=== PATIENT | male | born 1985 | race Caucasian/White ===

== ENCOUNTER 2022-04-03 00:30 | Day surgery (SDC) | payer BC, SELFPAY ==
[2022-04-02 09:43] VITALS: BMI 28.8
--- NOTE | 2022-04-02 09:47 | PC.NURSE ---
Report to the Outpatient Waiting Room, entrance under the green pavilion located off [facility], at time 0800 on date 04/03/22. Planned Procedure Time: 0900. Time changes happen often and if your time is changed the preop area will call you the afternoon before. - You and your visitor will be asked to self-screen and do not enter if you have any COVID symptoms. - Only one visitor is requested with a max of two and NO children visitors are allowed at this time. - The patient visitor may be requested to leave or wait in car when not with patient due to distancing restrictions. - A mask is optional within the hospital at this time. Patients may have LIGHT BREAKFAST. Take the following medications with a SIP of water the morning of surgery: LISINOPRIL RX'D DO NOT STOP ANY OF YOUR OTHER PRESCRIPTION MEDICATIONS PRIOR TO SURGERY EXCEPT THE FOLLOWING Medications to discontinue per physician: N/A Date to take last dose: N/A Please no make-up, nail slovenian, hairspray, perfume, deodorant, or body powder the day of surgery. No jewelry (including any body piercings) or valuables the day of surgery, leave them at home. Please take a shower or bath the night before, or the morning of, surgery with an antibacterial soap. Wear comfortable, loose fitting clothing. - Jewelry must be removed prior to entering the operating room. Rings and piercings that are not removed may be cut off. - The hospital will not accept responsibility for valuables. - Please leave all valuables, including medications, at home the day of surgery. YOU MAY DRIVE YOURSELF HOME FROM THE HOSPITAL. Follow any additional instructions given to you from your surgeon. If you or anyone in your household have experienced Covid symptoms in the past week, please notify your surgeon or the nurse liaison at the phone number below for possible testing. Telephone instructions given to PT Nolvia ZULETA and asked if any additional questions and then verbalized understanding. Patient advised to call surgeon office or pre surgery nurse liaison [phone] if any additional questions.
[2022-04-03] VITALS (10 sets, daily range): BP systolic 118–155; BP diastolic 67–87; PULSE 73–84; RESP 12–20; TEMP 36.3; O2SAT 98–100
--- NOTE | 2022-04-03 07:14 | WPDHPUPDATE1 ---
History and Physical Update Update Date/Time: 04/03/22 07:14 History and Physical has been reviewed, including an updated exam of the patient. There are NO changes in the patient's condition. Risks, benefits, and alternatives have been discussed and questions answered. Patient agrees to proceed with procedure.
[2022-04-03] MEDS: LIDO 1%/EPINEPHRINE 1:100,000 20 ML VIAL 13 ML INFILTRATE (08:08)
--- NOTE | 2022-04-03 11:11 | P.OP_ITS ---
Procedure Note - Detailed Date of Procedure 04/03/22 Pre-op Diagnosis laceration left index finger Post-op Diagnosis Same Procedure Performed Preparation of wound bed with full-thickness macerated skin excision 1.5 cm. Full-thickness skin graft to the left index finger pad from the left thigh 3 sq cm Surgeon Victoriano Mukherjee MD Anesthesia Local Indications Miter saw injury without nail involvement or fracture. Description of Procedure The left index finger was marked in the holding area well still bandaged. The donor site was chosen on the left thigh and on the left ulnar hand to be determined at the time of surgery. The patient was taken to the operating room where he was placed supine on the operating table. The left upper extremity was prepped and draped in the usual fashion. A time-out was held and confirmed. The digit was blocked with 1% lidocaine with epinephrine providing adequate anesthesia. A green tourniquet was placed to the base of the finger. The wound bed was prepped vigorously with saline wet Ray-Keisha sponges to freshen the elsi face. No foreign bodies were identified. Ragged wound margins were there was macerated skin was trimmed with scissors. Site was measured at 2 x 1.5 cm. We elected to harvest graft from the left thigh. This area was marked and locally infiltrated with 1% lidocaine with epinephrine. The volume was sufficient to distend the skin. A partial-thickness skin incision was made around the site and a Weck blade with Goulian handle was used to elevate the full-thickness graft at about in. This was tailored and inset around the periphery with 5 0 nylon suture. A dressing composed of oil emersion gauze with bacitracin and 2 in gauze and Coban was applied. The donor site was freed of all remaining dermis and the wound margins undermined approximately a cm in all directions and then closed with intradermal 3-0 Vicryl suture approximating wound margins well. Glue was applied over that with a Tegaderm dressing. The patient has a prescription sent to his pharmacy for hydrocodone 5/325 4.. He has an ongoing supply of cephalexin from the emergency room. Estimated Blood Loss 0 Drains No Packing No Pathology None sent Complications No immediate complications Condition Stable Disposition Same day
== END 2022-04-03 09:28 | disposition home or self-care (01) ==
PROVIDERS: PCP Family Medicine; Visit Provider Plastic Surgery
PROC: (CPT 15240; principal; 2022-04-03 07:30)
DX: S61.211A Laceration without foreign body of left index finger without damage to nail, initial encounter (principal); W27.0XXA Contact with workbench tool, initial encounter
CPT/HCPCS: 15240; 15004; A9270